=== PATIENT | female | born 1935 | race Caucasian/White ===

== ENCOUNTER 2017-12-20 20:58 | Inpatient (IN) | payer OTHER ==
[~2017-12-20] VITALS: Ht 154.9 cm; Wt 57.2 kg
[~2017-12-20 20:58] MED LIST: AMLODIPINE5 MG PO; ASPI-COR81 M1 PO; BENICAR HCT 12.1 TAB PO; GLIMEPIRIDE2 MG PO; LEV500 PO; METFORMIN1000 MG PO; METOPROLOL TART50 MG PO; METOPROLOL50 MG PO; NOR5 PO; PRAVASTATIN40 MG PO; PROMETHAZINE DM
[2017-12-20 21:00] VITALS: Ht 154.9 cm; Wt 57.2 kg
[2017-12-20 21:30] LABS: BASOPHIL % 0.5 % (0-2); PLATELET COUNT 321 x10^3mcL (130-400)
[2017-12-20 21:34] LABS: RED CELL DISTRIBUTION WIDTH 19.9 % (11.5-14.5)
[2017-12-20 21:38] LABS: CALCIUM 8.3 mg/dL (8.5-10.1); CARBON DIOXIDE 25.7 mmol/L (21-32); CHLORIDE SERUM 101 mmol/L (98-107); CREATININE SERUM 0.7 mg/dL (0.6-1.0); GLUCOSE SERUM 177 mg/dL (74-106); POTASSIUM SERUM 4.1 mmol/L (3.5-5.1); SODIUM SERUM 138 mmol/L (136-145)
[2017-12-20 21:42] LABS: ALBUMIN 3.4 g/dL (3.4-5.0); ALKALINE PHOSPHATASE 65 U/L (46-116); ALT/SGPT 25 U/L (14-59); AST/SGOT 18 U/L (15-37); BILIRUBIN TOTAL 0.22 mg/dL (0.20-1.00)
[2017-12-20 22:11] LABS: microscopic required? YES; urine erythrocyte 1+ (NEGATIVE)
[2017-12-20] MEDS ORDERED: METOPROLOL TART25 M1 PO (23:23)
[2017-12-20] MEDS ORDERED: NOR10 PO (23:24)
[2017-12-20] MEDS ORDERED: PRA40 PO (23:24)
[2017-12-20] MEDS ORDERED: METFORMIN HCL1000 MG PO (23:26)
[2017-12-20] MEDS ORDERED: GLIMEPIRIDE2 M1 PO (23:27)
[2017-12-20 23:38] LABS: MAGNESIUM 1.8 mg/dL (1.8-2.4)
[2017-12-20 23:51] VITALS: BP 122/58
[2017-12-21 02:03] VITALS: BP 122/58
[2017-12-21 05:21] VITALS: BP 127/53
[2017-12-21 06:52] LABS: CALCIUM 8.4 mg/dL (8.5-10.1); CARBON DIOXIDE 25.6 mmol/L (21-32); CHLORIDE SERUM 102 mmol/L (98-107); CREATININE SERUM 0.6 mg/dL (0.6-1.0); POTASSIUM SERUM 3.9 mmol/L (3.5-5.1); SODIUM SERUM 135 mmol/L (136-145)
[2017-12-21 07:12] LABS: GLUCOSE SERUM 50 mg/dL (74-106)
[2017-12-21 09:33] VITALS: BP 121/51
[2017-12-21 12:30] VITALS: BP 136/57
[2017-12-21 17:31] VITALS: BP 135/48
[2017-12-21 21:06] VITALS: BP 132/54
[2017-12-22 05:26] VITALS: BP 118/49
[2017-12-22 06:28] LABS: CALCIUM 8.4 mg/dL (8.5-10.1); CHLORIDE SERUM 102 mmol/L (98-107); CREATININE SERUM 0.6 mg/dL (0.6-1.0); GLUCOSE SERUM 87 mg/dL (74-106); POTASSIUM SERUM 3.8 mmol/L (3.5-5.1); SODIUM SERUM 138 mmol/L (136-145)
[2017-12-22 07:01] LABS: BASOPHIL % 0.6 % (0-2); PLATELET COUNT 300 x10^3mcL (130-400)
[2017-12-22 07:02] LABS: RED CELL DISTRIBUTION WIDTH 19.4 % (11.5-14.5)
[2017-12-22 07:04] LABS: rbc morphology (normal/abnorm) ABNORMAL (NORMAL)
[2017-12-22 10:10] VITALS: BP 135/49
[2017-12-22 11:16] VITALS: BP 135/49
[2017-12-22 11:19] VITALS: BP 135/49
== END 2017-12-22 12:00 | disposition home or self-care (01) | DRG 302 ==
LOC: ED 20:58 → DU 22:42
PROVIDERS: Emergency Medicine; Internal Medicine
DX: I25.10 Atherosclerotic heart disease of native coronary artery without angina pectoris (principal); I50.43 Acute on chronic combined systolic (congestive) and diastolic (congestive) heart failure; N39.0 Urinary tract infection, site not specified; I11.0 Hypertensive heart disease with heart failure; E11.9 Type 2 diabetes mellitus without complications; J44.9 Chronic obstructive pulmonary disease, unspecified; D64.9 Anemia, unspecified; E78.5 Hyperlipidemia, unspecified; Z79.82 Long term (current) use of aspirin; Z79.84 Long term (current) use of oral hypoglycemic drugs
CPT/HCPCS: 36600; 82962; 83880; J0696; J1940; J1956; J2550; J7050; J7620; Q0092